=== PATIENT | female | born 1995 | race Two or more races ===

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

== ENCOUNTER → 2017-09-28 | Outpatient (CLI) | payer MEDICARE, MEDICAID ==
--- NOTE | 2017-09-28 14:39 | EKG REPORT ---
SEVERITY:- BORDERLINE ECG - SINUS TACHYCARDIA BORDERLINE T WAVE ABNORMALITIES BORDERLINE PROLONGED QT INTERVAL : Confirmed by: Everardo Tsang MD 28-Sep-2017 14:37:57
== END ==
LOC: OD 11:11
PROVIDERS: ATTEND Nurse Practitioner Family
DX: R00.0 Tachycardia, unspecified (principal)
CPT/HCPCS: 93005; 93010

== ENCOUNTER → 2017-10-15 | Outpatient (CLI) | payer MEDICARE, MEDICAID ==
[2017-10-15 11:28] LABS: HEMATOCRIT 39.8 % (36.0-47.0); HEMOGLOBIN 13.1 g/dL (12.0-15.5); MEAN CORPUSCULAR HGB CONC 32.8 g/dL (32.0-36.0); MEAN CORPUSCULAR VOLUME 85 fl (80-97); PLATELET COUNT 237 10^3/uL (150-450); RED BLOOD COUNT 4.67 10^6/uL (3.72-5.28); RED CELL DISTRIBUTION WIDTH 14.5 % (11.5-14.0); WHITE BLOOD COUNT 8.2 10^3/uL (4.0-10.5)
[2017-10-15 11:49] LABS: ANION GAP 13 (5-19); BLOOD UREA NITROGEN 12 mg/dL (7-20); CALCIUM 9.6 mg/dL (8.4-10.2); CARBON DIOXIDE 24 mmol/L (22-30); CHLORIDE 104 mmol/L (98-107); GLUCOSE 89 mg/dL (75-110); POTASSIUM 4.4 mmol/L (3.6-5.0); SODIUM 141.2 mmol/L (137-145)
== END ==
LOC: OD 10:38
PROVIDERS: ATTEND Internal Medicine Cardiovascular Disease
DX: R00.0 Tachycardia, unspecified (principal)
CPT/HCPCS: 36415; 80048; 83735; 84443; 85027

== ENCOUNTER → 2017-10-31 | Outpatient (CLI) | payer MEDICARE, MEDICAID ==
[2017-10-31 11:57] LABS: ABSOLUTE LYMPHOCYTES (AUTO) 2.1 10^3/uL (0.5-4.7); ABSOLUTE MONOCYTES (AUTO) 0.3 10^3/uL (0.1-1.4); ABSOLUTE NEUT (AUTO) 2.7 10^3/uL (1.7-8.2); BASOPHILS % (AUTO) 0.9 % (0-2); EOSINOPHILS % (AUTO) 0.8 % (0-6); HEMATOCRIT 39.4 % (36.0-47.0); HEMOGLOBIN 13.2 g/dL (12.0-15.5); LYMPHOCYTES % (AUTO) 40.4 % (13-45); MEAN CORPUSCULAR HEMOGLOBIN 28.6 pg (27.0-33.4); MEAN CORPUSCULAR HGB CONC 33.4 g/dL (32.0-36.0); MEAN CORPUSCULAR VOLUME 86 fl (80-97); MONOCYTES % (AUTO) 6.7 % (3-13); PLATELET COUNT 240 10^3/uL (150-450); RED BLOOD COUNT 4.61 10^6/uL (3.72-5.28); RED CELL DISTRIBUTION WIDTH 14.6 % (11.5-14.0); SEGMENTED NEUTROPHILS % (AUTO) 51.2 % (42-78); TOTAL CELLS COUNTED % (AUTO) 100 %; WHITE BLOOD COUNT 5.2 10^3/uL (4.0-10.5)
[2017-10-31 12:27] LABS: ALANINE AMINOTRANSFERASE 30 U/L (9-52); ALBUMIN 4.2 g/dL (3.5-5.0); ALKALINE PHOSPHATASE 53 U/L (38-126); ANION GAP 13 (5-19); ASPARTATE AMINO TRANSFERASE 15 U/L (14-36); BILIRUBIN,DIRECT 0.3 mg/dL (0.0-0.4); BILIRUBIN,TOTAL 0.4 mg/dL (0.2-1.3); BLOOD UREA NITROGEN 11 mg/dL (7-20); CALCIUM 9.6 mg/dL (8.4-10.2); CARBON DIOXIDE 26 mmol/L (22-30); CHLORIDE 104 mmol/L (98-107); CHOLESTEROL 145.83 mg/dL (0-200); GLUCOSE 88 mg/dL (75-110); POTASSIUM 3.9 mmol/L (3.6-5.0); SODIUM 142.6 mmol/L (137-145); TOTAL PROTEIN 7.1 g/dL (6.3-8.2); TRIGLYCERIDES 53 mg/dL (<150)
[2017-10-31 12:38] LABS: DIRECT LDL 73 mg/dL (<100)
[2017-10-31 12:43] LABS: FREE T4 (FREE THYROXINE) 1.03 ng/dL (0.78-2.19)
[2017-10-31 12:57] LABS: THYROID STIMULATING HORMONE 0.81 uIU/mL (0.47-4.68)
== END ==
LOC: OD 10:56
PROVIDERS: ATTEND Physician Assistant
DX: F43.12 Post-traumatic stress disorder, chronic (principal); Z79.899 Other long term (current) drug therapy
CPT/HCPCS: 36415; 80053; 80061; 80164; 83036; 84146; 84439; 84443; 85025

== ENCOUNTER → 2017-12-13 | Outpatient (CLI) | payer MEDICARE, MEDICAID | LOC: LAB 09:02 | PROVIDERS: ATTEND Internal Medicine Cardiovascular Disease | DX: E83.42 Hypomagnesemia (principal); R00.0 Tachycardia, unspecified | CPT/HCPCS: 36415; 83735; 83880 ==

== ENCOUNTER → 2018-02-28 | Outpatient (CLI) | payer MEDICARE, MEDICAID ==
--- NOTE | 2018-02-28 14:34 | RADIOLOGY REPORT (SQ) ---
EXAM DESCRIPTION: CHEST PA/LATERAL COMPLETED DATE/TIME: 02/28/2018 2:09 pm REASON FOR STUDY: PLEURITIC PAIN COMPARISON: 05/21/2016 EXAM PARAMETERS: NUMBER OF VIEWS: two views TECHNIQUE: Digital Frontal and Lateral radiographic views of the chest acquired. RADIATION DOSE: NA LIMITATIONS: none FINDINGS: LUNGS AND PLEURA: No opacities, masses or pneumothorax. No pleural effusion. MEDIASTINUM AND HILAR STRUCTURES: No masses or contour abnormalities. HEART AND VASCULAR STRUCTURES: Heart normal size. No evidence for failure. BONES: No acute findings. HARDWARE: None in the chest. OTHER: There is a small defect in the left leaf of the diaphragm which contains bowel. This is uncha nged from prior study. IMPRESSION: NO SIGNIFICANT RADIOGRAPHIC FINDING IN THE CHEST. TECHNICAL DOCUMENTATION: JOB ID: [id number] [employer]- All Rights Reserved Reading location - IP/workstation name: [email or web address]
== END ==
LOC: OD 13:52
PROVIDERS: ATTEND Nurse Practitioner Family
DX: R07.81 Pleurodynia (principal)
CPT/HCPCS: 71046

== ENCOUNTER 2019-01-16 18:13 | Emergency (ER) | payer MEDICARE, MEDICAID ==
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
[2019-01-16 20:11] LABS: ABSOLUTE LYMPHOCYTES (AUTO) 1.5 10^3/uL (0.5-4.7); ABSOLUTE MONOCYTES (AUTO) 0.6 10^3/uL (0.1-1.4); ABSOLUTE NEUT (AUTO) 5.3 10^3/uL (1.7-8.2); BASOPHILS % (AUTO) 0.5 % (0-2); HEMATOCRIT 36.5 % (36.0-47.0); HEMOGLOBIN 11.9 g/dL (12.0-15.5); LYMPHOCYTES % (AUTO) 20.7 % (13-45); MEAN CORPUSCULAR HEMOGLOBIN 27.9 pg (27.0-33.4); MEAN CORPUSCULAR HGB CONC 32.7 g/dL (32.0-36.0); MEAN CORPUSCULAR VOLUME 85 fl (80-97); MONOCYTES % (AUTO) 7.9 % (3-13); PLATELET COUNT 280 10^3/uL (150-450); RED BLOOD COUNT 4.29 10^6/uL (3.72-5.28); RED CELL DISTRIBUTION WIDTH 14.8 % (11.5-14.0); SEGMENTED NEUTROPHILS % (AUTO) 70.9 % (42-78); TOTAL CELLS COUNTED % (AUTO) 100 %; WHITE BLOOD COUNT 7.5 10^3/uL (4.0-10.5)
[2019-01-16 20:30] LABS: ALANINE AMINOTRANSFERASE 17 U/L (9-52); ALBUMIN 4.1 g/dL (3.5-5.0); ALKALINE PHOSPHATASE 59 U/L (38-126); ANION GAP 11 (5-19); ASPARTATE AMINO TRANSFERASE 14 U/L (14-36); BILIRUBIN,DIRECT 0.2 mg/dL (0.0-0.4); BILIRUBIN,TOTAL 0.4 mg/dL (0.2-1.3); BLOOD UREA NITROGEN 8 mg/dL (7-20); CALCIUM 9.4 mg/dL (8.4-10.2); CARBON DIOXIDE 24 mmol/L (22-30); CHLORIDE 103 mmol/L (98-107); GLUCOSE 97 mg/dL (75-110); SODIUM 137.8 mmol/L (137-145)
[2019-01-16 20:35] LABS: ACETAMINOPHEN < 10 ug/mL (10-30); ALCOHOL < 10 mg/dL (NONE DETECTED); SALICYLATE < 1.0 mg/dL (2.0-20.0)
[2019-01-16 22:45] LABS: APPEARANCE,URINE CLOUDY; BILIRUBIN,URINE NEGATIVE (NEGATIVE); COLOR,URINE YELLOW; GLUCOSE, URINE NEGATIVE (NEGATIVE); KETONES,URINE TRACE mg/dL (NEGATIVE); LEUKOCYTE ESTERASE,URINE NEGATIVE (NEGATIVE); NITRITE,URINE NEGATIVE (NEGATIVE); PROTEIN,URINE NEGATIVE (NEGATIVE); URINE SPECIFIC GRAVITY 1.016; UROBILINOGEN,URINE NEGATIVE mg/dL (<2.0)
[2019-01-16 22:46] LABS: ADD MANUAL MICROSCOPIC YES
[2019-01-16 22:51] LABS: BACTERIA,URINE TRACE /HPF; WBC,URINE RARE /HPF
[2019-01-16 22:52] LABS: YEAST,URINE PRESENT
[2019-01-16 23:18] LABS: URINE AMPHETAMINES SCREEN NEGATIVE; URINE BARBITURATES SCREEN NEGATIVE; URINE BENZODIAZEPINES SCREEN NEGATIVE; URINE COCAINE SCREEN NEGATIVE; URINE MARIJUANA (THC) SCREEN NEGATIVE; URINE METHADONE SCREEN NEGATIVE; URINE PHENCYCLIDINE SCREEN NEGATIVE
[2019-01-17] MEDS: BENZTROPINE MESYLATE 1 MG TABLET PO SCH ×2 (11:24→17:31)
[2019-01-17] MEDS: METFORMIN HCL 500 MG TABLET PO SCH (12:19)
[2019-01-17] MEDS: ARIPIPRAZOLE 5 MG TABLET PO SCH (12:19)
[2019-01-17] MEDS: DIVALPROEX SODIUM 500 MG TAB.SR.24H PO SCH (12:19)
--- NOTE | 2019-01-17 13:42 | EKG REPORT ---
SEVERITY:- BORDERLINE ECG - SINUS TACHYCARDIA BORDERLINE T ABNORMALITIES, ANT-LAT LEADS BORDERLINE PROLONGED QT INTERVAL : Confirmed by: Everardo Tsang MD 17-Jan-2019 13:41:20
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
[2019-01-17] MEDS ORDERED: HALOPERIDOL 5 MG TABLET PO SCH (22:00)
[2019-01-17] MEDS ORDERED: CETIRIZINE 10 MG TABLET PO SCH (22:00)
[2019-01-17] MEDS ORDERED: CHLORPROMAZINE HCL 50 MG TABLET PO SCH (22:00)
[2019-01-18] MEDS: ARIPIPRAZOLE 5 MG TABLET PO SCH (08:34)
[2019-01-18] MEDS: DIVALPROEX SODIUM 500 MG TAB.SR.24H PO SCH (08:34)
[2019-01-18] MEDS: METFORMIN HCL 500 MG TABLET PO SCH (08:34)
[2019-01-18] MEDS: BENZTROPINE MESYLATE 1 MG TABLET PO SCH (09:26)
--- NOTE | 2019-01-18 09:33 | ER Document Report ---
Doctor's Note Notes: 01/18/19 09:27 Patient was seen yesterday. Here for respite care and med management issues. Patient received all of her home medications yesterday. Seems to be stable throughout the night. We will continue to follow. 01/18/19 10:13 General: Alert no acute distress HEENT: Atraumatic, normocephalic, pupils equal round react to light and accommodation, extraocular muscles are intact, nose is non tender, posterior pharynx is without erythema or exudate. Tongue is unremarkable Heart: Heart with regular rate and rhythm, no murmurs, no rubs, no clicks Lungs: Lungs clear to auscultation bilaterally, no wheezes, rhonchi, rales Abdomen: Abdomen is soft, nontender, nondistended, normal bowel sounds Neuro: cranial nerves II through XII intact, reflexes intact, sensation intact, Extremities:Moving all extremities. Equal strength bilaterally in the upper lower extremities. No significant deformity Skin: No lesions. Skin intact Psych: Normal insight. Normal judgment Assessment and plan: Medication adjustment, respite care
[2019-01-18 10:55] VITALS: BP 127/62
--- NOTE | 2019-01-18 11:40 | PSYCHOLOGICAL NOTE ---
Psych Note - Psych Note Date seen by psych provider: 01/18/19 Time seen by psych provider: 10:30 Psych Note: Reason for Consult: Behavioral episode Chart review conducted; no behavioral outbursts are noted. Patient has been restarted on medications. Clinician spoke with patient's mother who identifies that she has spoken with [facility] and patient's outpatient mental health provider, [facility]. She feels more confident in plan of action for the patient. Clinician provided additional resources available for intellectual developmental delay programs and services. Patient's mother disclosed she has no concerns with the patient being discharged to her care. Diagnosis Intellectual developmental disorder mild to moderate per history Reactive attachment disorder per history Posttraumatic stress disorder per history Major depressive disorder per history Continue home medications Impression\plan: Patient is cleared from acute psychiatric services. Patient was provided respite and restarted on medications. No further concerns are noted. Patient's mother reports she has no concerns with the patient being discharged home and discussed at length plan of care. Clinician provided resource packet of additional programs and services. Dr. Talley was consulted on the care and management of this patient; attending physicians in agreement with recommendations and disposition.
== END 2019-01-18 10:56 | disposition home or self-care (01) ==
LOC: ER 18:13
DX: F20.9 Schizophrenia, unspecified (principal); F31.9 Bipolar disorder, unspecified; Z79.899 Other long term (current) drug therapy; S80.211A Abrasion, right knee, initial encounter; X58.XXXA Exposure to other specified factors, initial encounter; Z79.84 Long term (current) use of oral hypoglycemic drugs; J45.909 Unspecified asthma, uncomplicated
CPT/HCPCS: 93005; 99285; 36415; 82962; 80307 ×4; 85025; 80053; 81001; 80164; 93010; A9270 ×11; J3490

== ENCOUNTER → 2019-04-24 | Outpatient (CLI) | payer MEDICARE, MEDICAID ==
--- NOTE | 2019-04-24 17:38 | RADIOLOGY REPORT (SQ) ---
EXAM DESCRIPTION: U/S EXTREMITY NONVASCULAR COMP COMPLETED DATE/TIME: 04/24/2019 4:42 pm REASON FOR STUDY: R10.32 LEFT LOWER QUADRANT PAIN R10.32 LEFT LOWER QUADRANT PAIN COMPARISON: None. TECHNIQUE: Dynamic and static grayscale images acquired of the localized site of clinical concern an d recorded on PACS. Additional selected color Doppler and spectral images recorded. SITE OF CONCERN: Bilateral inguinal regions. LIMITATIONS: None. FINDINGS: Sonographic imaging of the area of concern shows some small lymph nodes bilaterally. 1 on the right measures 8.3 mm in largest diameter. There are 2 on the left. The larger measures 13.6 m m in largest diameter. These nodes have normal fatty tamy. IMPRESSION: There are some small lymph nodes in each groin. TECHNICAL DOCUMENTATION: JOB ID: [id number] [employer]- All Rights Reserved Reading location - IP/workstation name: [email or web address]
== END ==
LOC: RAD 15:23
PROVIDERS: ATTEND Nurse Practitioner Family
DX: R10.32 Left lower quadrant pain (principal)
CPT/HCPCS: 76881

== ENCOUNTER 2019-07-21 13:16 | Emergency (ER) | payer MEDICAID, MEDICARE, OTHER ==
[2019-07-21] MEDS ORDERED: TETANUS/DIPHTHERIA TOX-ADULT 0.5 ML SYR (>=7YO) IM ONE ×2 (14:26→19:26)
[2019-07-21 16:10] LABS: ABSOLUTE BASOPHILS # (AUTO) 0.1 10^3/uL (0.0-0.2); ABSOLUTE LYMPHOCYTES (AUTO) 1.7 10^3/uL (0.5-4.7); ABSOLUTE MONOCYTES (AUTO) 0.5 10^3/uL (0.1-1.4); ABSOLUTE NEUT (AUTO) 5.6 10^3/uL (1.7-8.2); BASOPHILS % (AUTO) 0.9 % (0-2); HEMATOCRIT 42.5 % (36.0-47.0); HEMOGLOBIN 14.4 g/dL (12.0-15.5); LYMPHOCYTES % (AUTO) 21.4 % (13-45); MEAN CORPUSCULAR VOLUME 88 fl (80-97); MONOCYTES % (AUTO) 6.9 % (3-13); PLATELET COUNT 225 10^3/uL (150-450); RED BLOOD COUNT 4.81 10^6/uL (3.72-5.28); RED CELL DISTRIBUTION WIDTH 14.5 % (11.5-14.0); SEGMENTED NEUTROPHILS % (AUTO) 70.8 % (42-78); TOTAL CELLS COUNTED % (AUTO) 100 %
[2019-07-21 16:27] LABS: ALBUMIN 4.2 g/dL (3.5-5.0); ALKALINE PHOSPHATASE 61 U/L (38-126); ANION GAP 11 (5-19); ASPARTATE AMINO TRANSFERASE 25 U/L (14-36); BILIRUBIN,DIRECT 0.1 mg/dL (0.0-0.4); BLOOD UREA NITROGEN 19 mg/dL (7-20); CALCIUM 9.9 mg/dL (8.4-10.2); CARBON DIOXIDE 25 mmol/L (22-30); CHLORIDE 104 mmol/L (98-107); GLUCOSE 92 mg/dL (75-110); TOTAL PROTEIN 7.5 g/dL (6.3-8.2)
[2019-07-21] MEDS ORDERED: METRONIDAZOLE 500 MG TABLET PO ONE (18:44)
[2019-07-21] MEDS ORDERED: AZITHROMYCIN 250 MG TABLET PO ONE (18:44)
[2019-07-21] MEDS ORDERED: CEFTRIAXONE INJ 250 MG VIAL IM ONE (18:44)
[2019-07-21] MEDS ORDERED: LIDOCAINE 1% INJ-PF (10 MG/ML) 30 ML SDV INFIL ONE (18:44)
[2019-07-21] MEDS ORDERED: ONDANSETRON 4 MG TAB.RAPDIS PO ONE (18:44)
[2019-07-21 19:16] LABS: RBCS (WET MOUNT) FEW RBCS SEEN; T.VAGINALIS (WET MOUNT) NO TRICHOMONAS SEEN; WBCS (WET MOUNT) FEW WBCS SEEN; YEAST (WET MOUNT) NO YEAST SEEN
[2019-07-21] MEDS ORDERED: LEVONORGESTREL 1.5 MG TABLET (1 TAB/ER-USE) PO ONE (19:55)
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
[2019-07-21 20:36] VITALS: BP 102/69
[2019-07-21 20:43] LABS: CHLAM PCR DETECTED (NOT DETECT)
== END 2019-07-21 20:33 | disposition home or self-care (01) ==
LOC: ER 13:16
DX: S31.41XA Laceration without foreign body of vagina and vulva, initial encounter (principal); T76.21XA Adult sexual abuse, suspected, initial encounter; Y92.59 Other trade areas as the place of occurrence of the external cause; Z97.5 Presence of (intrauterine) contraceptive device; Z23 Encounter for immunization
CPT/HCPCS: 99285; 96372; 90471; 36415; 87210; 85025; 81025; 86592; 80053; 86701; 87491; 87591; 90714; A9270; S0119; J3490; J0696

== ENCOUNTER 2019-07-23 13:47 | Emergency (ER) | payer MEDICARE, MEDICAID ==
[2019-07-23 14:03] VITALS: BP 119/60
[2019-07-23] MEDS ORDERED: ONDANSETRON 4 MG TAB.RAPDIS PO ONE (14:12)
--- NOTE | 2019-07-23 14:12 | ER Document Report ---
ED Medical Screen (RME) - General Chief Complaint: Nausea/Vomiting Stated Complaint: VOMITING BLOOD Time Seen by Provider: 07/23/19 14:06 Primary Care Provider: SOLIS GREER NP [Primary Care Provider] - Follow up as needed Mode of Arrival: Ambulatory Information source: Patient Notes: 4-year-old female presented to ED for cough which caused her to vomit which had some red flecks in it. She states she vomited twice and it had spots in it. She states she does have an IUD. She states she still is a little nauseated. Lungs are clear respirations regular nonlabored speaking in full sentences. TRAVEL OUTSIDE OF THE [place] IN LAST 30 DAYS: No - HPI Onset: Just prior to arrival Onset/Duration: Gone Quality of pain: No pain Severity: None Pain Level: Denies Associated Symptoms: Cough (productive), Nausea, Vomiting - Cough and. denies: Fever Exacerbated by: Denies Relieved by: Denies Similar symptoms previously: No - Related Data Smoking: Non-smoker Frequency of alcohol use: None Drug Abuse: None Allergies/Adverse Reactions: lorazepam [Lorazepam] Adverse Reaction (Verified 10/18/13 16:02) Past Medical History - General Information source: Patient - Social History Cigarette use (# per day): No Chew tobacco use (# tins/day): No Frequency of alcohol use: None Drug Abuse: None Lives with: Other - [facility] Family history: Reviewed & Not Pertinent - Past Medical History Cardiac Medical History: Reports: None Pulmonary Medical History: Reports: Hx Asthma, Hx Bronchitis, Hx Pneumonia EENT Medical History: Reports: None Neurological Medical History: Reports: None Endocrine Medical History: Reports: None Renal/ Medical History: Reports: None. Denies: Hx Peritoneal Dialysis Malignancy Medical History: Reports: None GI Medical History: Reports: Hx Gastroesophageal Reflux Disease Musculoskeltal Medical History: Reports None Skin Medical History: Reports None Psychiatric Medical History: Reports: Hx Bipolar Disorder, Hx Personality Disorder, Hx Schizophrenia Traumatic Medical History: Reports: None Infectious Medical History: Reports: None Surgical Hx: Negative Past Surgical History: Reports: None - Immunizations Immunizations up to date: Yes Hx Diphtheria, Pertussis, Tetanus Vaccination: Yes - up to date Review of Systems - Review of Systems Constitutional: Recent illness EENT: Nose discharge, Sinus discharge Cardiovascular: No symptoms reported Respiratory: Cough, Sputum Gastrointestinal: Vomiting, Other - Red streak emesis Genitourinary: No symptoms reported Female Genitourinary: No symptoms reported Musculoskeletal: No symptoms reported Skin: No symptoms reported Hematologic/Lymphatic: No symptoms reported Neurological/Psychological: No symptoms reported -: Yes All other systems reviewed and negative Physical Exam - Vital signs Vitals: Temp Pulse Resp BP Pulse Ox 97.9 F 77 18 119/60 99 07/23/19 14:02 07/23/19 14:02 07/23/19 14:02 07/23/19 14:02 07/23/19 14:02 Interpretation: Normal - General General appearance: Appears well, Alert - HEENT Head: Normocephalic, Atraumatic Eyes: Normal Pupils: PERRL Ears: Normal External canal: Normal Tympanic membrane: Normal Sinus: Normal Nasal: Purulent discharge, Swelling Mouth/Lips: Normal Mucous membranes: Normal Pharynx: Post nasal drainage Neck: Normal - Respiratory Respiratory status: No respiratory distress Chest status: Nontender Breath sounds: Normal Chest palpation: Normal - Cardiovascular Rhythm: Regular Heart sounds: Normal auscultation Murmur: No - Abdominal Inspection: Normal Distension: No distension Bowel sounds: Normal Tenderness: Nontender Organomegaly: No organomegaly - Back Back: Normal, Nontender - Extremities General upper extremity: Normal inspection, Nontender, Normal color, Normal ROM, Normal temperature General lower extremity: Normal inspection, Nontender, Normal color, Normal ROM, Normal temperature, Normal weight bearing. No: Deepa's sign - Neurological Neuro grossly intact: Yes Cognition: Normal Orientation: AAOx4 [place] Coma Scale Eye Opening: Spontaneous [place] Coma Scale Verbal: Oriented [place] Coma Scale Motor: Obeys Commands Senthil Coma Scale Total: 15 Speech: Normal Motor strength normal: LUE, RUE, LLE, RLE Sensory: Normal - Psychological Associated symptoms: Normal affect, Normal mood - Skin Skin Temperature: Warm Skin Moisture: Dry Skin Color: Normal Course - Re-evaluation Re-evalutation: 07/23/19 14:19 After performing a Medical Screening Examination, I estimate there is LOW risk for ACUTE CORONARY SYNDROME, RESPIRATORY FAILURE, SEPSIS OR MENINGITIS, thus I consider the discharge disposition reasonable. I have reevaluated this patient multiple times and no significant life threatening changes are noted. The patient and I have discussed the diagnosis and risks, and we agree with discharging home with close follow-up. We also discussed returning to the Emergency Department immediately if new or worsening symptoms occur. We have discussed the symptoms which are most concerning (e.g., changing or worsening pain, trouble swallowing or breathing, neck stiffness, fever) that necessitate immediate return. - Vital Signs Vital signs: Temp Pulse Resp BP Pulse Ox 97.9 F 77 18 119/60 99 07/23/19 14:02 07/23/19 14:02 07/23/19 14:02 07/23/19 14:02 07/23/19 14:02 Doctor's Discharge - Discharge Clinical Impression: URI (upper respiratory infection) Qualifiers: URI type: unspecified viral URI Qualified Code(s): J06.9 - Acute upper respiratory infection, unspecified Condition: Stable Disposition: HOME, SELF-CARE Additional Instructions: UPPER RESPIRATORY ILLNESS: You have a viral infection of the respiratory passages -- a "cold." This common infection causes nasal congestion, drainage, and often sore throat and cough. It is highly contagious. The disease usually lasts about 10 to 14 days. There is no "cure" for the viral infection -- it must run its course. If there is a complication, such as bacterial infection in the nose, sinuses, middle ear, or bronchial tubes, antibiotics may be required. The antibiotics won't affect the virus. Drink plenty of fluids. A humidifier may help. An expectorant medication or decongestant may make you more comfortable. Use acetaminophen or ibuprofen for fever or aches. See the doctor if fever persists over two days, if there is any significant worsening of your symptoms, or if you simply fail to improve as expected. You have been recommended treatment with Claritin 10 mg Sudafed 30 mg and Mucinex 600 mg. These are all [id number]-[id number] medications for cough cold congestion. You do need to call the go to the pharmacist to get the Sudafed from behind the counter please get a little red pills they are more effective. You could also use Flonase which is xomi-rmh-mknrhys 1 spray each nostril twice a day. You could also use salt soda solution gargles. These will help to remove the drainage from the back your throat. Chloraseptic spray was bsfn-hyy-[id number] that will also help with your sore throat. Salt and soda solution gargle 1 quart of water 1 tablespoon of salt 1 teaspoon of baking soda Mixed 3 ingredients together and boil for 1 minute Placed in a covered quart jar Use 1/2 ounce of cold solution to gargle 3 times a day USE OF ACETAMINOPHEN (Tylenol): Acetaminophen may be taken for pain relief or fever control. It's much safer than aspirin, offering a wider range of "safe" dosages. It is safe during . Some brand names are Tylenol, Panadol, Datril, Anacin 3, Tempra, and Liquiprin. Acetaminophen can be repeated every four hours. The following are maximum recommended dosages: >89 pounds or adults 650 mg to 900 mg Acetaminophen can be repeated every four hours. Maximum dose not to exceed 4000 mg a day. SMOKING: If you smoke, you should stop smoking. The tar and chemicals in cigarette smoke are harmful. Smoking has been shown to cause: emphysema chronic bronchitis lung cancer mouth and throat cancer stomach and pancreas cancer premature aging defects In addition, smoking increases ear and lung infections in children of smokers. FOLLOW-UP CARE: If you have been referred to a physician for follow-up care, call the physicians office for an appointment as you were instructed or within the next two days. If you experience worsening or a significant change in your symptoms, notify the physician immediately or return to the Emergency Department at any time for re-evaluation. Referrals: SOLIS GREER NP [Primary Care Provider] - Follow up as needed
== END 2019-07-23 14:19 | disposition home or self-care (01) ==
LOC: ER 13:47
DX: J06.9 Acute upper respiratory infection, unspecified (principal); R11.2 Nausea with vomiting, unspecified; Z97.5 Presence of (intrauterine) contraceptive device
CPT/HCPCS: 99283; A9270; S0119

== ENCOUNTER 2019-10-11 22:37 | Emergency (ER) | payer MEDICARE, MEDICAID ==
[2019-10-11] MEDS ORDERED: HALOPERIDOL LACTATE INJ 5 MG/1 ML VIAL IM ONE (22:57)
[2019-10-11 23:51] LABS: ABSOLUTE BASOPHILS # (AUTO) 0.1 10^3/uL (0.0-0.2); ABSOLUTE MONOCYTES (AUTO) 0.8 10^3/uL (0.1-1.4); ABSOLUTE NEUT (AUTO) 6.8 10^3/uL (1.7-8.2); BASOPHILS % (AUTO) 0.6 % (0-2); EOSINOPHILS % (AUTO) 0.1 % (0-6); HEMATOCRIT 38.1 % (36.0-47.0); HEMOGLOBIN 13.1 g/dL (12.0-15.5); LYMPHOCYTES % (AUTO) 21.1 % (13-45); MEAN CORPUSCULAR HEMOGLOBIN 28.9 pg (27.0-33.4); MEAN CORPUSCULAR HGB CONC 34.2 g/dL (32.0-36.0); MEAN CORPUSCULAR VOLUME 84 fl (80-97); MONOCYTES % (AUTO) 8.3 % (3-13); PLATELET COUNT 254 10^3/uL (150-450); RED BLOOD COUNT 4.52 10^6/uL (3.72-5.28); RED CELL DISTRIBUTION WIDTH 13.6 % (11.5-14.0); SEGMENTED NEUTROPHILS % (AUTO) 69.9 % (42-78); TOTAL CELLS COUNTED % (AUTO) 100 %; WHITE BLOOD COUNT 9.7 10^3/uL (4.0-10.5)
[2019-10-11 23:55] LABS: ALKALINE PHOSPHATASE 64 U/L (38-126); ANION GAP 8 (5-19); APPEARANCE,URINE CLOUDY; ASPARTATE AMINO TRANSFERASE 22 U/L (14-36); BILIRUBIN,DIRECT 0.2 mg/dL (0.0-0.4); BILIRUBIN,TOTAL 0.4 mg/dL (0.2-1.3); BILIRUBIN,URINE NEGATIVE (NEGATIVE); BLOOD UREA NITROGEN 15 mg/dL (7-20); CALCIUM 9.4 mg/dL (8.4-10.2); CARBON DIOXIDE 21 mmol/L (22-30); CHLORIDE 108 mmol/L (98-107); COLOR,URINE YELLOW; GLUCOSE 103 mg/dL (75-110); GLUCOSE, URINE NEGATIVE (NEGATIVE); KETONES,URINE TRACE mg/dL (NEGATIVE); LEUKOCYTE ESTERASE,URINE SMALL (NEGATIVE); NITRITE,URINE NEGATIVE (NEGATIVE); POTASSIUM 3.7 mmol/L (3.6-5.0); PROTEIN,URINE 30 mg/dL (NEGATIVE); TOTAL PROTEIN 6.8 g/dL (6.3-8.2); URINE SPECIFIC GRAVITY 1.021; UROBILINOGEN,URINE NEGATIVE mg/dL (<2.0)
[2019-10-11 23:58] LABS: ACETAMINOPHEN < 10 ug/mL (10-30); ALCOHOL < 10 mg/dL (NONE DETECTED); SALICYLATE < 1.0 mg/dL (2.0-20.0)
[2019-10-12 00:09] LABS: URINE AMPHETAMINES SCREEN NEGATIVE; URINE BARBITURATES SCREEN NEGATIVE; URINE BENZODIAZEPINES SCREEN NEGATIVE; URINE COCAINE SCREEN NEGATIVE; URINE MARIJUANA (THC) SCREEN NEGATIVE; URINE METHADONE SCREEN NEGATIVE; URINE PHENCYCLIDINE SCREEN NEGATIVE
--- NOTE | 2019-10-12 05:04 | ER Document Report ---
ED General - General TRAVEL OUTSIDE OF THE [place] IN LAST 30 DAYS: No <KVEIN CARRILLO - Last Filed: 10/12/19 05:04> <LICO JIMENEZ P - Last Filed: 10/12/19 12:37> <GINO CASTANON E - Last Filed: 10/12/19 15:18> - General Chief Complaint: Psych Problem Stated Complaint: IVC Time Seen by Provider: 10/11/19 22:44 Primary Care Provider: SOLIS GREER NP [Primary Care Provider] - Follow up as needed - [facility] Notes: 24-year-old female history of MR, possible psychotic disorder although unclear from provided documentation and patient unable to clarify presents with disorganized behavior, disorganized thoughts, possibly exhibiting hallucinations in home of legal guardian (appears to be court-appointed). Patient reported by guardian to have been refusing to take medications, and poorly interacting with reality, with possible dangerous behavior of going in cars with strangers? Patient unable to endorse or deny. Due to patient exhibiting violent agitation with Floor Director, patient given Haldol IM upon arrival to ED to facilitate evaluatio n and secured patient and staff safety. After Haldol, patient complying with history, denies any medical complaints, denies SI/HI, denies hallucinations. Says she has been running away because she wants to live with biological mother. History limited by poor historian. (KEVIN CARRILLO) - Related Data Allergies/Adverse Reactions: lorazepam [Lorazepam] Adverse Reaction (Verified 10/11/19 22:45) Past Medical History - General Information source: Law Enforcement - Social History Smoking Status: Unknown if Ever Smoked Family History: Reviewed & Not Pertinent Patient has suicidal ideation: No Patient has homicidal ideation: No - Past Medical History Cardiac Medical History: Denies: Hx Heart Attack, Hx Hypertension, Hx Pulmonary Embolism Pulmonary Medical History: Reports: Hx Asthma, Hx Bronchitis, Hx Pneumonia Denies: Hx COPD, Hx Sleep Apnea, Hx Tuberculosis Neurological Medical History: Denies: Hx Cerebrovascular Accident, Hx Seizures Renal/ Medical History: Denies: Hx Peritoneal Dialysis Malignancy Medical History: Denies: Hx Lung Cancer GI Medical History: Reports: Hx Gastroesophageal Reflux Disease. Denies: Hx Hepatitis, Hx Hiatal Hernia, Hx Ulcer Musculoskeletal Medical History: Psychiatric Medical History: Reports: Hx Bipolar Disorder, Hx Personality Disorder, Hx Schizophrenia Infectious Medical History: Denies: Hx Hepatitis Past Surgical History: Denies: Hx Hysterectomy, Hx Mastectomy, Hx Open Heart Surgery, Hx Pacemaker - Immunizations Immunizations up to date: Yes Hx Diphtheria, Pertussis, Tetanus Vaccination: Yes - up to date <KEVIN CARRILLO - Last Filed: 10/12/19 05:04> Review of Systems <KEVIN CARRILLO - Last Filed: 10/12/19 05:04> - Review of Systems Notes: REVIEW OF SYSTEMS: CONSTITUTIONAL : Denies fever, chills, or sweats. EENT: Denies recent cold/sinus symptoms, denies throat pain CARDIOVASCULAR: Denies chest pain, ROSCOE RESPIRATORY: Denies cough, denies shortness of breath. GASTROINTESTINAL: Denies abdominal pain, nausea/vomiting. GENITOURINARY: Denies difficulty urinating, painful urination. FEMALE GENITOURINARY: Denies abnormal vaginal bleeding, vaginal discharge, pre gnancy. MUSCULOSKELETAL: Denies neck pain, back pain. SKIN: Denies rash or skin lesions. HEMATOLOGIC : Denies easy bruising or bleeding. LYMPHATIC: Denies swollen, enlarged glands. NEUROLOGICAL: Denies headache, denies change in gait. PSYCHIATRIC: Denies anxiety or stress or depression. (KEVIN CARRILLO) Physical Exam - General General appearance: Appears well In distress: None - HEENT Head: Normocephalic, Atraumatic Eyes: Normal Conjunctiva: Normal Extraocular movements intact: Yes - Respiratory Respiratory status: No respiratory distress Breath sounds: Normal - Cardiovascular Rhythm: Regular Heart sounds: Normal auscultation - Abdominal Inspection: Normal Distension: No distension Tenderness: Nontender - Extremities General upper extremity: Normal inspection General lower extremity: Normal inspection - Neurological Neuro grossly intact: Yes Senthil Coma Scale Eye Opening: Spontaneous [place] Coma Scale Verbal: Oriented Speech: Normal - Psychological Associated symptoms: Circumferential speech, Flat affect - Skin Skin Temperature: Warm Skin Color: Normal <KEVIN CARRILLO - Last Filed: 10/12/19 05:04> - Vital signs Vitals: Temp Pulse Resp BP Pulse Ox 98.9 F 119 H 18 125/64 98 10/11/19 22:56 10/11/19 22:56 10/11/19 22:56 10/11/19 22:56 10/11/19 22:56 Course - Laboratory Result Diagrams: 10/11/19 22:50 10/11/19 22:50 <KEVIN CARRILLO - Last Filed: 10/12/19 05:04> - Laboratory Result Diagrams: 10/11/19 22:50 10/11/19 22:50 <LICO JIMENEZ - Last Filed: 10/12/19 12:37> - Laboratory Result Diagrams: 10/11/19 22:50 10/11/19 22:50 <GINO CASTANON - Last Filed: 10/12/19 15:18> - Re-evaluation Re-evalutation: 10/12/19 05:06 IVD documentation by , pt merits psych eval to determine possible necessity for inpatient psych admission for disorganized behavior and thoughts, in ED compliant with workup, no physical complaints. Initially tachycardic upon arrival when pt agitated, resolved without intervention. Hematuria on UA likely 2/2 spotting from IUD, pt denies any electronic instrument trades worker or urine symptoms. Pt medically cleared pending psych consult. (KEVIN CARRILLO) 10/12/19 12:35 PT resting quietly in room. No acute medical issues. Awaiting psychiatric input. (LICO JIMENEZ) - Vital Signs Vital signs: Temp Pulse Resp BP Pulse Ox 97.7 F 86 16 99/61 L 96 10/12/19 12:11 10/12/19 12:11 10/12/19 12:11 10/12/19 12:11 10/12/19 12:11 - Laboratory Laboratory results interpreted by me: 10/11/19 10/11/19 10/11/19 22:50 22:50 22:50 Chloride 108 H Carbon Dioxide 21 L Urine Protein 30 H Urine Ketones TRACE H Urine Blood MODERATE H Ur Leukocyte Esterase SMALL H Salicylates < 1.0 L Acetaminophen < 10 L Valproic Acid 34.2 L Discharge <KEVIN CARRILLO - Last Filed: 10/12/19 05:04> <LICO JIMENEZ - Last Filed: 10/12/19 12:37> <GINO CASTANON - Last Filed: 10/12/19 15:18> - Discharge Clinical Impression: Paranoia (psychosis) Condition: Fair Disposition: PSYCH HOSP/UNIT Prescriptions: Benztropine Mesylate [Cogentin 1 mg Tablet] 1 tab PO BID #60 tab Carbamazepine [Tegretol 200 mg Tablet] 500 mg PO BID 30 Days #60 tablet Olanzapine [Zyprexa 5 mg Tablet] 5 mg PO Q12 30 Days #60 tablet Referrals: SOLIS GREER, AC[facility] CUTTER [Primary Care Provider] - Follow up as needed
--- NOTE | 2019-10-12 09:52 | EKG REPORT ---
SEVERITY:- OTHERWISE NORMAL ECG - SINUS TACHYCARDIA : Confirmed by: Yessi Sanchez MD 12-Oct-2019 09:51:05
--- NOTE | 2019-10-12 15:12 | ER Document Report ---
Doctor's Note Notes: 10/12/19 15:11 The patient has been seen by the behavioral team. Patient is to be discharged this afternoon. They have recommended discontinuation of Ambien and adding Cogentin 1 mg twice daily. They have also recommended dosage changes for his Depakote and Zyprexa. Dosages at the time of discharge as follows: Depakote 500 mg twice daily Zyprexa 5 mg twice daily. Prescriptions will be written for these medications.
--- NOTE | 2019-10-12 19:51 | PSYCHOLOGICAL NOTE ---
Psych Note - Psych Note Date seen by psych provider: 10/12/19 Time seen by psych provider: 12:25 Psych Note: Patient is a 24-year-old female who presents to ED via [facility] on IVC petition filed by Kimberly Benavides, patient's [facility] tanner rotary drum continuous process. Patient has a history of disrupting placements by frequent elopements, aggressive behaviors, medication non compliance, and disorganized thought patterns. According to IVC, patient was mental health diagnosis of IDD and Schizophrenia. Per chart review, patient has mental health diagnosis of IDD, RAD, and PTSD. Patient states she ran away because she "just wanted to." Patient stated she did not want to live in the assisted. Patient states she wants to live with her biological mother. Patient expressed sadness with a lack of contact with her family. Patient's Depakote level is low (34.2). Mood is normal with congruent affect. Patient denies suicidal and homicidal ideations. There is no observed behavior that suggests patient is responding to internal stimuli. Patient is able to engage appropiraitely with clinician and express needs and wants in a logical manner. Patient denies current auditory and visual hallucinations. Eye contact is appropriate. Conversational speech is within normal limits. Intellectual ability appears consistent with an individual with IDD. Attention and concentration are good. Insight, judgment and impulse control are currently fair. Medication recommendations per [facility] contracted psychiatrist Dr. Balbir MD are as follows: Discontinue home medication- Ambien Change Depakote to 500MG, twice a day Change Zyprexa to 5MG, twice a day Add Cogentin 1MG, daily Impression/Plan: Patient is recommended for rescind of IVC and is cleared from acute psychiatric services. Medication recommendations have been provided. Patient arrived to ED on IVC petition filed by her [facility] tanner rotary drum continuous process. Patient has been in foster care since the age of 9 with a history of disrupting placements. Patient's behavior is consistent with an individual with moderate IDD. There is no evidence of patient's responding to internal stimuli or other behaviors suggestive of a diagnosis of Schizophrenia. The behavioral health team has collaborated extensively with patient's guardian, [facility] (Kimberly Benavides) to arrange appropriate placement. Patient would benefit from a placement that is specific for those with a diagnosis of IDD. Although IDD is a diagnosis in the DSM-5, treatment and interventions for those with an IDD diagnosis are more complex than those with a mental health diagnosis. There is concern that prior placements have not been appropriate as they have focused on mental health, not IDD. Patient's Depakote level was low, suggesting patient has not been taking her medications. DSS requested patient remain in ED until placement was solidified. Guardian was informed the ED does not provide respite. Patient has been calm and cooperative with clinician and other hospital staff. Patient has had no behavioral or aggressive behaviors while in the ED. Patient's guardian has arranged appropriate placement. Dr. Talley was consulted on the care and management of this patient; attending physician is in agreement with recommendations and disposition.
[2019-10-12 20:26] VITALS: BP 102/63
== END 2019-10-12 21:11 | disposition home or self-care (01) ==
LOC: ER 22:37
DX: F22 Delusional disorders (principal); J45.909 Unspecified asthma, uncomplicated
CPT/HCPCS: 93005; 99285; 96372; 36415; 80307 ×4; 84703; 85025; 80053; 81001; 80164; 93010; J1630